=== PATIENT | male | born 1960 | race Caucasian/White ===

== ENCOUNTER 2017-01-15 10:45 | Emergency (ER) | payer SELFPAY ==
[~2017-01-15] VITALS: Ht 177.8 cm; Wt 68.0 kg
[2017-01-15 13:26] LABS: BASO # 0.1 x10^3/uL (0.0-0.2); BASO % 1 % (0-3); EOS % 4 % (0-3); HEMATOCRIT 46.8 % (39.0-53.0); HEMOGLOBIN 16.1 g/dL (13.0-17.5); LYMPH # 0.6 x10^3/uL (1.0-4.8); LYMPH % 9 % (24-48); MEAN CORPUSCULAR HEMOGLOBIN 35 pg (25-35); MEAN CORPUSCULAR HGB CONC 35 g/dL (31-37); MEAN CORPUSCULAR VOLUME 101 fL (79-100); MONO % 8 % (0-9); NEUT % 78 % (31-73); PLATELET COUNT 213 x10^3/uL (140-400); RED BLOOD COUNT 4.62 x10^6/uL (4.30-5.70); RED CELL DISTRIBUTION WIDTH 15.1 % (11.5-14.5); WHITE BLOOD COUNT 6.1 x10^3/uL (4.0-11.0)
[2017-01-15 13:36] LABS: CALCIUM 8.5 mg/dL (8.5-10.1); CREATININE 0.8 mg/dL (0.7-1.3); GFR 100.4; POTASSIUM 3.7 mmol/L (3.5-5.1)
--- NOTE | 2017-01-15 15:19 | PHYS DOC ---
Past Medical History Past Medical History: Other Additional Past Medical Histor: POSSIBLE PSORASIS Past Surgical History: Other Additional Past Surgical Histo: BACK, WRIST Additional Information: 0.5 PPD Alcohol Use: Occasionally Additional Information: ON WEEKENDS, 3 TO 4 BEERS Drug Use: None Adult General Chief Complaint Chief Complaint: SKIN PROBLEM HPI HPI This is a 56-year-old male who presents with unfortunate skin lesions and plaques to his lower extremities that are consistent with a psoriatic appearance. Patient has been evaluated by a body bumper for his skin lesions and told that he has likely psoriasis. He is unable to afford his medications secondary to not having adequate insurance. His skin lesions have been present for the last year. He states he presents today because they are worsening and he is having difficulty managing him at home. He is currently not taking any medications and is unsure if he has any health problems because he cannot afford health insurance. He denies any fever or chills. He denies any significant joint pain. Review of Systems Review of Systems Constitutional: Denies fever or chills [] Eyes: Denies change in visual acuity, redness, or eye pain [] HENT: Denies nasal congestion or sore throat [] Respiratory: Denies cough or shortness of breath [] Cardiovascular: No additional information not addressed in HPI [] GI: Denies abdominal pain, nausea, vomiting, bloody stools or diarrhea [] : Denies dysuria or hematuria [] Musculoskeletal: Denies back pain or joint pain [] Integument: Denies rash, has skin lesions [] Neurologic: Denies headache, focal weakness or sensory changes [] Endocrine: Denies polyuria or polydipsia [] Allergies Allergies Allergies Uncoded Allergies Type Severity Reaction Last Updated Verified bee stings Allergy Unknown 01/15/17 Physical Exam Physical Exam Constitutional: Well developed, well nourished, no acute distress, non-toxic appearance. [] HENT: Normocephalic, atraumatic, bilateral external ears normal, oropharynx moist, no oral exudates, nose normal. [] Eyes: PERRLA, EOMI, conjunctiva normal, no discharge. [] Neck: Normal range of motion, no tenderness, supple, no stridor. [] Cardiovascular:Heart rate regular rhythm, no murmur [] Lungs & Thorax: Bilateral breath sounds clear to auscultation [] Abdomen: Bowel sounds normal, soft, no tenderness, no masses, no pulsatile masses. [] Skin: Warm, dry, pt has diffuse maculopapular skin lesions and significant plaques to the bilateral anterior tibial surfaces consistent with psoriasis, there is sparing to the face. [] Back: No tenderness, no CVA tenderness. [] Extremities: No tenderness, no cyanosis, no clubbing, ROM intact, no edema. [] Neurologic: Alert and oriented X 3, normal motor function, normal sensory function, no focal deficits noted. [] Psychologic: Affect normal, judgement normal, mood normal. [] Current Patient Data Vital Signs Vital Signs Date Time Temp Pulse Resp B/P Pulse Ox O2 Delivery O2 Flow Rate FiO2 01/15/17 15:24 91 18 143/84 96 Room Air 01/15/17 10:58 98.6 98.6 Lab Values Laboratory Tests Test 01/15/17 13:03 White Blood Count 6.1x10^3/uL (4.0-11.0) Red Blood Count 4.62x10^6/uL (4.30-5.70) Hemoglobin 16.1g/dL (13.0-17.5) Hematocrit 46.8% (39.0-53.0) Mean Corpuscular Volume 101fL (79-100) H Mean Corpuscular Hemoglobin 35pg (25-35) Mean Corpuscular Hemoglobin Concent 35g/dL (31-37) Red Cell Distribution Width 15.1% (11.5-14.5) H Platelet Count 213x10^3/uL (140-400) Neutrophils (%) (Auto) 78% (31-73) H Lymphocytes (%) (Auto) 9% (24-48) L Monocytes (%) (Auto) 8% (0-9) Eosinophils (%) (Auto) 4% (0-3) H Basophils (%) (Auto) 1% (0-3) Neutrophils # (Auto) 4.7x10^3uL (1.8-7.7) Lymphocytes # (Auto) 0.6x10^3/uL (1.0-4.8) L Monocytes # (Auto) 0.5x10^3/uL (0.0-1.1) Eosinophils # (Auto) 0.3x10^3/uL (0.0-0.7) Basophils # (Auto) 0.1x10^3/uL (0.0-0.2) Sodium Level 141mmol/L (136-145) Potassium Level 3.7mmol/L (3.5-5.1) Chloride Level 103mmol/L (98-107) Carbon Dioxide Level 23mmol/L (21-32) Anion Gap 15 (6-14) H Blood Urea Nitrogen 4mg/dL (8-26) L Creatinine 0.8mg/dL (0.7-1.3) Estimated GFR (Cockcroft-Gault) 100.4 Glucose Level 75mg/dL (70-99) Calcium Level 8.5mg/dL (8.5-10.1) Laboratory Tests 01/15/17 13:03 Laboratory Tests 01/15/17 13:03 EKG EKG [] Radiology/Procedures Radiology/Procedures [] Course & Med Decision Making Course & Med Decision Making Pertinent Labs and Imaging studies reviewed. (See chart for details) This 56 -year-old male with an unfortunate case of psoriasis that has been untreated for the last year will be discharged home with close follow-up with his body bumper as scheduled tomorrow. I discussed the case with the body bumper, Dr. Neil, who states hospital admission will not help the patient at this time as there is no acute treatment that she could offer for his symptoms. She did state she would see him tomorrow morning and try to provide him sample medications while he is ongoing insurance approval. I had the patient meet with the social worker psychiatric and discuss the application for Medicaid. His laboratory workup was unremarkable. Patient is very agreeable this plan will see the body bumper in the morning and will continue to try to obtain insurance coverage. Dragon Disclaimer Dragon Disclaimer This electronic medical record was generated, in whole or in part, using a voice recognition dictation system. Departure Departure Impression: Primary Impression: Psoriasis Disposition: 01 HOME, SELF-CARE Admitting Physician: Other Condition: STABLE Referrals: NO PCP (PCP) Patient Instructions: Psoriasis, [id number] Additional Instructions: Please follow up with your body bumper as scheduled. Return to the ER if you develop any worsening of your symptoms. ARAVIND SESAY DO Jan 15, 2017 15:19
[2017-01-15 15:24] VITALS: BP 143/84
== END 2017-01-15 15:34 | disposition home or self-care (01) ==
LOC: ER 10:45
DX: L40.9 Psoriasis, unspecified (principal); F17.200 Nicotine dependence, unspecified, uncomplicated; Z91.030 Bee allergy status
CPT/HCPCS: 36415; 80048; 85027; 99284